=== PATIENT | female | born 1955 | race Caucasian/White ===

== ENCOUNTER 2019-05-08 18:28 | Emergency (ER) | payer MEDICAID ==
[~2019-05-08] VITALS: Ht 152.4 cm; Wt 57.2 kg
[2019-05-08 18:42] VITALS: BP_SYST 151
[2019-05-08] MEDS ORDERED: ACYCLOVIR 400 MG TABLET PO ONE (22:30)
[2019-05-08] MEDS ORDERED: PREDNISONE 10 MG TABLET PO ONE (22:30)
[2019-05-08] MEDS ORDERED: HYDROcodone/ACETAMIN 7.5-325 MG TAB PO ONE (22:30)
[2019-05-08] MEDS ORDERED: metFORMIN HCL 500 MG TABLET PO ONE (23:00)
[2019-05-08 23:11] VITALS: BP_SYST 145
== END 2019-05-08 23:11 | disposition home or self-care (01) ==
LOC: SED 18:28
DX: B02.9 Zoster without complications (principal)
CPT/HCPCS: 82962; 99284; J7512